=== PATIENT | male | born 1985 ===

== ENCOUNTER 2017-02-16 12:56 | Emergency (ER) | payer OTHER ==
[2017-02-16 12:56] VITALS: BMI 36.8
[2017-02-16 13:10] VITALS: TEMP 98.4
--- NOTE | 2017-02-16 13:38 | RAD ---
HISTORY: chest pain COMPARISON: No prior. TECHNIQUE: Chest PA and lateral FINDINGS: LUNGS: Slight elevation right hemidiaphragm possibly due to eventration. Mild bibasilar atelectasis right greater than left PLEURA: No significant pleural effusion identified. No pneumothorax apparent. CARDIOVASCULAR: Normal. OSSEOUS STRUCTURES: No significant abnormalities. VISUALIZED UPPER ABDOMEN: Normal. OTHER FINDINGS: None. IMPRESSION: Slight elevation right hemidiaphragm possibly due to eventration. Mild bibasilar atelectasis right greater than left
--- NOTE | 2017-02-16 14:13 | ED PDOC ---
HPI: Chest Pain Time Seen by Provider: 02/16/17 13:11 Chief Complaint (Nursing): Chest Pain Chief Complaint (Provider): Left sided chest pain on/off for years History Per: Patient History/Exam Limitations: no limitations Onset/Duration Of Symptoms: Days Current Symptoms Are (Timing): Still Present Severity: Moderate Quality: Sharp Associated Symptoms: denies: Nausea, Dyspnea, Diaphoresis, Syncope Modifying Factors: None Additional Complaint(s): Pt states he has been seen in this ER in the past for same. Pt states he was seen at [facility] and had EKG, CXR and labs completed. Pt states he comes today with the same left sided pain, non-radiating, intermittent for months. PT states he has stopped smoking since being seen a few months ago. Pt taking motrin for pain. Past Medical History Reviewed: Historical Data, Nursing Documentation, Vital Signs Vital Signs: Last Vital Signs Temp 98.4 F 02/16/17 13:08 Pulse 79 02/16/17 13:08 Resp 21 02/16/17 13:08 BP 155/100 H 02/16/17 13:08 Pulse Ox 100 02/16/17 14:13 - Medical History PMH: HTN Denies: Chronic Kidney Disease - Surgical History Surgical History: No Surg Hx - Family History Family History: States: Unknown Family Hx - Living Arrangements Living Arrangements: With Family - Social History Current smoker - smoking cessation education provided: No Ex-Smoker (has not smoked in the last 12 months): Yes Alcohol: None Drugs: Denies - Immunization History Hx Tetanus Toxoid Vaccination: No Hx Influenza Vaccination: No Hx Pneumococcal Vaccination: No - Home Medications Home Medications: Ambulatory Orders Medication Instructions Recorded Cyclobenzaprine [Cyclobenzaprine 10 mg PO BID PRN #10 tab 02/16/17 HCl] - Allergies Allergies/Adverse Reactions: Allergies Allergy/AdvReac Type Severity Reaction Status Date / Time No Known Allergies Allergy Verified 10/17/15 19:21 Physical Exam - Reviewed Nursing Documentation Reviewed: Yes Vital Signs Reviewed: Yes - Physical Exam Appears: Positive for: Well, Non-toxic, No Acute Distress Head Exam: Positive for: ATRAUMATIC, NORMAL INSPECTION, NORMOCEPHALIC Skin: Positive for: Normal Color, Warm, DRY Eye Exam: Positive for: Normal appearance ENT: Positive for: Normal ENT Inspection Neck: Positive for: Normal, Painless ROM Cardiovascular/Chest: Positive for: Regular Rate, Rhythm, Chest Non Tender ( Left pectoralis muscles ) Respiratory: Positive for: CNT, Normal Breath Sounds Gastrointestinal/Abdominal: Positive for: Normal Exam, Bowel Sounds, Soft Back: Positive for: Normal Inspection Extremity: Positive for: Normal ROM Neurologic/Psych: Positive for: Alert, Oriented - ECG O2 Sat by Pulse Oximetry: 100 Disposition - Clinical Impression Clinical Impression: Chest pain - Patient ED Disposition Is Patient to be Admitted: No Counseled Patient/Family Regarding: Diagnosis, Need For Followup - Disposition Referrals: Killian Charles MD [Staff Provider] - Disposition: Routine/Home Disposition Time: 14:11 Condition: GOOD Additional Instructions: Please follow-up with sports physical therapist. Prescriptions: Cyclobenzaprine [Cyclobenzaprine HCl] 10 mg PO BID PRN #10 tab PRN Reason: Muscle pain Instructions: Chest Pain (ED)
[2017-02-16 15:42] VITALS: BP 146/84; PULSE 84; RESP 20; O2SAT 97
--- NOTE | 2017-02-19 10:08 | CARD ---
APPROVED REPORT EKG Measurement Heart [id number] <Conclusion> Normal sinus rhythm Normal ECG
== END 2017-02-16 15:05 | disposition home or self-care (01) ==
LOC: H.ER 12:56
DX: R07.9 Chest pain, unspecified (principal); I10 Essential (primary) hypertension; Z87.891 Personal history of nicotine dependence